=== PATIENT | female | born 1995 | race Caucasian/White ===

== ENCOUNTER 2017-07-24 20:12 | Emergency (ER) | payer BC ==
[2017-07-24] MEDS ORDERED: ACETAMINOPHEN 500 MG TABLET PO ONE (21:08)
--- NOTE | 2017-07-24 21:12 | Emergency Department Record ---
History of Present Illness - General Chief Complaint: Headache Migraine Stated Complaint: DIZZY,VELASQUEZ Time Seen by Provider: 07/24/17 21:08 Source: Patient Mode of Arrival: Ambulatory Limitations: No limitations - History of Present Illness Initial Comments: 22 yo female presents to ED with a CC of headache, congestion, sneezing, and dizziness symptoms. Patient reports she just feels "crummy". Patient started taking theraflu and zyrtec yesterday that did not sufficiently improve her symptoms. Patient denies neck stiffness or pain, denies sore throat, and denies cough symptoms. Patient denies abdominal pain or urinary symptoms. MD Complaint: Other Onset/Timin -: Days(s) Onset Description: At rest Location: Frontal, Left Severity scale (1-10): 6 Quality: Aching Consistency: Constant Improves With: Nothing Worsens With: Movement of head/neck Associated Symptoms: Nausea, Other Other Symptoms: Other Treatments Prior to Arrival: None - Related Data Previous Rx's Medication Instructions Recorded Ibuprofen [Motrin 600Mg] 600 mg PO Q8H #30 tablet 06/16/16 Allergies Allergy/AdvReac Type Severity Reaction Status Date / Time fenofibrate Allergy RASH Verified 05/22/16 11:00 Travel Screening - Travel/Exposure Within Last 30 Days Have you traveled within the last 30 days?: No - Travel Symptoms Symptom Screening: None Review of Systems Constitutional: Reports: Chills, Malaise. Denies: Fever, Night sweats Eyes: Denies: Eye discharge, Eye pain ENT: Reports: Congestion. Denies: Ear pain, Epistaxis Respiratory: Denies: Cough, Dyspnea Cardiovascular: Denies: Chest pain, Dyspnea on exertion Endocrine: Reports: Fatigue. Denies: Heat or cold intolerance Gastrointestinal: Denies: Abdominal pain, Constipation, Vomiting Genitourinary: Denies: Incontinence, Retention Musculoskeletal: Denies: Arthralgia, Back pain, Gout, Joint swelling Skin: Denies: Bruising, Change in color Neurological: Reports: Headache. 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 CORN SHUCKER history: Reports: no CORN SHUCKER history - RESPIRATORY Hx Respiratory Disorders: No Hx Asthma: No Hx Bronchitis: No Hx COPD: No Hx Dyspnea: No Hx Pneumonia: No Hx Pulmonary Embolism: No Hx Sleep Apnea: No Hx Tuberculosis: No Hx of CPAP: No - CARDIOVASCULAR Hx Cardio Disorders: No Hx Cardiac Cath: No Hx Chest Pain: No Hx CHF: No Hx Deep Vein Thrombosis: No Hx Edema: No Hx Heart Attack: No Hx Hypertension: No Hx Hypotension: No Hx Irregular Heartbeat: No Hx Palpitations: No Hx Pacemaker/Defib: No Hx Vascular Disease: No Hx Coronary Artery Disease: No Hx Coronary Artery Bypass Graft: No Hx Coronary Stent: No Hx Percutaneous Transluminal Coronary Angioplasty (PTCA): No - NEURO Hx Neuro Disorders: No - GI Hx GI Disorders: No - Hx Genitourinary Disorders: No - ENDOCRINE Hx Endocrine Disorders: No - MUSCULOSKELETAL Hx Musculoskeletal Disorders: No Comment:: acne - PSYCH Hx Psych Problems: No - HEMATOLOGY/ONCOLOGY Hx Hematology/Oncology Disorders: No Family Medical History Any Significant Family History?: Yes Hx HTN: Father, Mother Physical Exam - General General Appearance: Alert, Oriented x3, Cooperative, Mild distress Limitations: No limitations - Head Head exam: Atraumatic, Normocephalic, Normal inspection Head exam detail: negative: Abrasion, Contusion, Hargrove's sign, General tenderness, Hematoma, Laceration - Eye Eye exam: Normal appearance. negative: Conjunctival injection, Periorbital swelling, Periorbital tenderness, Scleral icterus - ENT Ear exam: negative: Auricular hematoma, Auricular trauma Nasal Exam: negative: Active bleeding, Discharge, Dried blood, Foreign body Mouth exam: negative: Drooling, Laceration, Muffled voice, Tongue elevation - Neck Neck exam: Normal inspection. negative: Meningismus, Tenderness - Respiratory Respiratory exam: Normal lung sounds bilaterally. negative: Rales, Respiratory distress, Rhonchi, Stridor - Cardiovascular Cardiovascular Exam: Regular rate, Normal rhythm, Normal heart sounds - GI/Abdominal GI/Abdominal exam: Soft. negative: Rebound, Rigid, Tenderness - Rectal Rectal exam: Deferred - exam: Deferred - Extremities Extremities exam: Normal inspection. negative: Calf tenderness, Pedal edema, Tenderness - Back Back exam: Denies: CVA tenderness (R), CVA tenderness (L) - Neurological Neurological exam: Alert, Normal gait, Oriented X3 - Psychiatric Psychiatric exam: Normal affect, Normal mood - Skin Skin exam: Normal color. negative: Abrasion Type of lesion: negative: abrasion Course Vital Signs 09/11/17 20:37 Temperature 100.2 F H Pulse Rate [ 105 H Pulse Ox Probe] Respiratory 16 Rate Blood Pressure 114/91 [Left Arm] Pulse Ox 97 - Reevaluation(s) Reevaluation #1: 07/24/17 21:35 Strep/Influenza: Negative. Reevaluation #2: 07/24/17 22:07 Patient was updated on all results, repeat temperature 99.3. Patient denies urinary symptoms, abdominal pain, or neck pain symptoms, no clinical evidence for meningitis on examination. Patient's symptoms appear viral in nature, advised continued symptomatic treatment for her URI symptoms with Tylenol and Motrin. Disposition Disposition: Discharge Clinical Impression: URI (upper respiratory infection) Qualifiers: URI type: unspecified URI Qualified Code(s): J06.9 - Acute upper respiratory infection, unspecified Disposition: Home, Self-Care Condition: (2) Stable Instructions: Upper Respiratory Infection (ED) Additional Instructions: Return to ED if your symptoms worsen or if you have any concerns. Tylenol and and Motrin as directed for fever symptoms. Follow-up with your family doctor in 3-5 days as directed. Forms: Patient Portal Access Time of Disposition: 22:09 Quality - Quality Measures Quality Measures: N/A - Blood Pressure Screening Does Patient Have Any of the Following: No Blood Pressure Classification: Normal BP Reading Systolic Measurement: 117 Diastolic Measurement: 76 Screening for High Blood Pressure: < Normal BP, F/U Not Required > [G8783]
[2017-07-24 21:31] LABS: STREP A SCREEN NEGATIVE (NEGATIVE)
[2017-07-24 21:32] LABS: INFLUENZA A NEGATIVE (NEGATIVE); INFLUENZA B NEGATIVE (NEGATIVE)
== END 2017-07-24 22:15 | disposition home or self-care (01) ==
LOC: ER 20:12
DX: J06.9 Acute upper respiratory infection, unspecified (principal); R51 Headache; R11.0 Nausea; R42 Dizziness and giddiness
CPT/HCPCS: 87400; 87880; 99282

== ENCOUNTER 2018-10-13 19:21 | Emergency (ER) | payer BC ==
[2018-10-13] MEDS ORDERED: IBUPROFEN 600 MG TABLET PO ONE (19:42)
[2018-10-13] MEDS ORDERED: TOPICAL LIDOCAINE W/ EPI 5 ML TOP ONE (19:42)
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
[2018-10-13] MEDS ORDERED: CEPHALEXIN 500 MG CAPSULE PO STA (20:26)
[2018-10-13] MEDS ORDERED: HYDROCODONE/APAP 5/325MG TABLET PO ONE (20:26)
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
== END 2018-10-13 20:46 | disposition home or self-care (01) ==
LOC: ER 19:21
DX: S61.412A Laceration without foreign body of left hand, initial encounter (principal); R42 Dizziness and giddiness; W26.0XXA Contact with knife, initial encounter; Y93.G1 Activity, food preparation and clean up; Y92.000 Kitchen of unspecified non-institutional (private) residence as the place of occurrence of the external cause
CPT/HCPCS: 12001; 99283; 99284

== ENCOUNTER 2019-04-28 19:43 | Emergency (ER) | payer BC ==
[2019-04-28] MEDS ORDERED: AMOXICILLIN/POTASSIUM CLAV 875MG/125MG TABLET PO ONE (20:22)
--- NOTE | 2019-04-28 21:00 | Emergency Department Record ---
History of Present Illness - General Chief Complaint: Animal Bite Stated Complaint: CAT BITE Time Seen by Provider: 04/28/19 20:15 Source: Patient Mode of Arrival: Ambulatory Limitations: No limitations - History of Present Illness Initial Comments: pt states her cat bit her finger when she startled it 4 hrs ago on the r middle finger tip. now it has swelling and erythema. cat has not had its rabies but is kept in the house at all times. Onset/Timin -: Hour(s) Animal: Cat Description: Household pet, Appeared well Mechanism: Bite Context: Other Associated Symptoms: None - Related Data Patient Tetanus UTD (within 5 yrs): Yes Home Medications Medication Instructions Recorded Confirmed Last Taken Guaifenesin [Mucinex] 600 mg PO DAILY 04/28/19 04/28/19 Unknown Previous Rx's Medication Instructions Recorded Amoxicillin/Potassium Clav 1 tab PO BID #20 tab 04/28/19 [Augmentin 875-125 Tablet] Allergies Allergy/AdvReac Type Severity Reaction Status Date / Time fenofibrate Allergy RASH Verified 05/22/16 11:00 Travel Screening - Travel/Exposure Within Last 30 Days Have you traveled within the last 30 days?: No Past Medical History - SOCIAL HISTORY Smoking Status: Never smoker Alcohol Use: None Drug Use: None - 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 SETUP TECHNICIAN history: Reports: no SETUP TECHNICIAN history - RESPIRATORY Hx Respiratory Disorders: No Hx Asthma: No Hx Bronchitis: No Hx COPD: No Hx Dyspnea: No Hx Pneumonia: No Hx Pulmonary Embolism: No Hx Sleep Apnea: No Hx Tuberculosis: No Hx of CPAP: No - CARDIOVASCULAR Hx Cardio Disorders: No Hx Cardiac Cath: No Hx Chest Pain: No Hx CHF: No Hx Deep Vein Thrombosis: No Hx Edema: No Hx Heart Attack: No Hx Hypertension: No Hx Hypotension: No Hx Irregular Heartbeat: No Hx Palpitations: No Hx Pacemaker/Defib: No Hx Vascular Disease: No Hx Coronary Artery Disease: No Hx Coronary Artery Bypass Graft: No Hx Coronary Stent: No Hx Percutaneous Transluminal Coronary Angioplasty (PTCA): No - NEURO Hx Neuro Disorders: No - GI Hx GI Disorders: No - Hx Genitourinary Disorders: No - ENDOCRINE Hx Endocrine Disorders: No - MUSCULOSKELETAL Hx Musculoskeletal Disorders: No Comment:: acne - PSYCH Hx Psych Problems: No - HEMATOLOGY/ONCOLOGY Hx Hematology/Oncology Disorders: No Family Medical History Any Significant Family History?: Yes Hx HTN: Father, Mother Course Vital Signs 06/16/19 19:54 Temperature 98.8 F Pulse Rate 108 H Respiratory 20 Rate Blood Pressure 117/91 Pulse Ox 99 - Reevaluation(s) Reevaluation #1: 04/28/19 20:56 pt does not want rabies as she states cat never goes out. anmal control has been notified Disposition Disposition: Discharge Clinical Impression: Cat bite involving extremity Disposition: Home, Self-Care Condition: (1) Good Instructions: Animal Bite (ED) Additional Instructions: recheck in 1-2 days. follow up with family doctor and with animal control. return sooner if worse. soak finger in warm water 4 times a day. Prescriptions: Amoxicillin/Potassium Clav [Augmentin 875-125 Tablet] 1 tab PO BID #20 tab Quality - Quality Measures Quality Measures: N/A - Blood Pressure Screening Does Patient Have Any of the Following: No Blood Pressure Classification: Hypertensive Reading Systolic Measurement: 117 Diastolic Measurement: 91 Screening for High Blood Pressure: < Pre-Hypertensive BP, F/U Documented > [G8950] Pre-Hypertensive Follow-up Interventions: Follow-up with rescreen every year.
--- NOTE | 2019-05-01 14:21 | RADIOLOGY REPORT ---
EXAM: RIGHT THIRD FINGER HISTORY: CAT BITE TO RIGHT THIRD FINGER DISTALLY. PAIN AND SWELLING, POSSIBLE FOREIGN BODY. TECHNIQUE: Three views of the right third finger were obtained. Comparison: Right hand series of 01/12/13. No prior right third finger series. Encounter: Initial. FINDINGS: Mild soft tissue swelling distally involving the third finger. No definite fracture seen. No dislocation evident. No definite opaque foreign body is seen, although some foreign bodies will be radiographically indistinguishable from the adjacent soft tissues. IMPRESSION: MILD SOFT TISSUE SWELLING DISTALLY. THE RIGHT THIRD FINGER APPEARS OTHERWISE NEGATIVE. J[facility]BER: [id number] [facility]
== END 2019-04-28 21:28 | disposition home or self-care (01) ==
LOC: ER 19:43
DX: S61.252A Open bite of right middle finger without damage to nail, initial encounter (principal); R05 Cough; W55.01XA Bitten by cat, initial encounter; Y92.009 Unspecified place in unspecified non-institutional (private) residence as the place of occurrence of the external cause
CPT/HCPCS: 73140; 99283

== ENCOUNTER 2019-04-29 20:55 | Emergency (ER) | payer BC ==
--- NOTE | 2019-04-29 21:07 | Emergency Department Record ---
History of Present Illness - General Chief Complaint: Animal Bite Stated Complaint: CAT BITE,STRAIN MUSCLE IN CHEST Time Seen by Provider: 04/29/19 21:01 Source: Patient Mode of Arrival: Ambulatory Limitations: No limitations - History of Present Illness Initial Comments: 24 yo female presents to ED for evaluation following a cat bite to the distal aspect of the right middle digit. Patient was seen last night 4-hours after her bite, started on Augmentin orally. Patient was told to return to the ED if her symptoms failed to improve in 24 hours. Patient reports her redness and swelling are about the same, denies fevers, chills, or extending erythema beyond the bite last PM. Patient denies health problems at her baseline. MD Complaint: Animal bite Onset/Timin -: Hour(s) Right: Hand Animal: Cat Description: Household pet Mechanism: Bite Pain Description: Dull Associated Symptoms: Erythema - Related Data Patient Tetanus UTD (within 5 yrs): Yes Previous Rx's Medication Instructions Recorded Amoxicillin/Potassium Clav 1 tab PO BID #20 tab 04/28/19 [Augmentin 875-125 Tablet] Allergies Allergy/AdvReac Type Severity Reaction Status Date / Time fenofibrate Allergy RASH Verified 05/22/16 11:00 Review of Systems Constitutional: Denies: Chills, Fever, Malaise, Night sweats Eyes: Denies: Eye discharge, Eye pain ENT: Denies: Congestion, Ear pain, Epistaxis Respiratory: Denies: Cough, Dyspnea Cardiovascular: Denies: Chest pain, Dyspnea on exertion Endocrine: Denies: Fatigue, Heat or cold intolerance Gastrointestinal: Denies: Abdominal pain, Nausea, Vomiting Genitourinary: Denies: Incontinence, Retention Musculoskeletal: Denies: Arthralgia, Back pain Skin: Reports: Other (Bite to the right middle finger). 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: Reports: no SOAKING ROOM OPERATOR history - RESPIRATORY Hx Respiratory Disorders: No Hx Asthma: No Hx Bronchitis: No Hx COPD: No Hx Dyspnea: No Hx Pneumonia: No Hx Pulmonary Embolism: No Hx Sleep Apnea: No Hx Tuberculosis: No Hx of CPAP: No - CARDIOVASCULAR Hx Cardio Disorders: No Hx Cardiac Cath: No Hx Chest Pain: No Hx CHF: No Hx Deep Vein Thrombosis: No Hx Edema: No Hx Heart Attack: No Hx Hypertension: No Hx Hypotension: No Hx Irregular Heartbeat: No Hx Palpitations: No Hx Pacemaker/Defib: No Hx Vascular Disease: No Hx Coronary Artery Disease: No Hx Coronary Artery Bypass Graft: No Hx Coronary Stent: No Hx Percutaneous Transluminal Coronary Angioplasty (PTCA): No - NEURO Hx Neuro Disorders: No - GI Hx GI Disorders: No - Hx Genitourinary Disorders: No - ENDOCRINE Hx Endocrine Disorders: No - MUSCULOSKELETAL Hx Musculoskeletal Disorders: No Comment:: acne - PSYCH Hx Psych Problems: No - HEMATOLOGY/ONCOLOGY Hx Hematology/Oncology Disorders: No Family Medical History Any Significant Family History?: Yes Hx HTN: Father, Mother Physical Exam - General General Appearance: Alert, Oriented x3, Cooperative, No acute distress Limitations: No limitations - Head Head exam: Atraumatic, Normocephalic, Normal inspection Head exam detail: negative: Abrasion, Contusion, Hargrove's sign, General tenderness, Hematoma, Laceration - Eye Eye exam: Normal appearance. negative: Conjunctival injection, Periorbital swelling, Periorbital tenderness, Scleral icterus - ENT Ear exam: negative: Auricular hematoma, Auricular trauma Nasal Exam: negative: Active bleeding, Discharge, Dried blood, Foreign body Mouth exam: negative: Drooling, Laceration, Muffled voice, Tongue elevation - Neck Neck exam: Normal inspection. negative: Meningismus, Tenderness - Respiratory Respiratory exam: Normal lung sounds bilaterally. negative: Rales, Respiratory distress, Rhonchi, Stridor - Cardiovascular Cardiovascular Exam: Regular rate, Normal rhythm, Normal heart sounds - GI/Abdominal GI/Abdominal exam: Soft. negative: Rebound, Rigid, Tenderness - Rectal Rectal exam: Deferred - exam: Deferred - Extremities Extremities exam: Tenderness, Other (Mild STS and erythema present to the tuft of the right middle finger, no felon present, erythema does not extend beyond the DIP. No Knavel's signs are present.). negative: Calf tenderness, Pedal edema - Back Back exam: Denies: CVA tenderness (R), CVA tenderness (L) - Neurological Neurological exam: Alert, Normal gait, Oriented X3 - Psychiatric Psychiatric exam: Normal affect, Normal mood - Skin Skin exam: Normal color. negative: Abrasion Type of lesion: negative: abrasion Course - Reevaluation(s) Reevaluation #1: 04/29/19 21:12 Patient was seen and examined, patient is concerned about failure to improve in 24 hours. Patient was counseled that symptoms will show improvement for 48 hour at the earliest, however to return to ED for extending erythema to the PIP or beyond. Patient appears stable for discharge with continued outpatient treatment as prescribed. Disposition Disposition: Discharge Clinical Impression: Cat bite involving extremity Disposition: Home, Self-Care Condition: (2) Stable Instructions: Animal Bite (ED) Additional Instructions: Return to ED if your symptoms worsen or if you have any concerns. Continue Augmentin as directed. Follow-up with your family doctor in 3-5 days as directed. Forms: Patient Portal Access Time of Disposition: 21:06 Quality - Quality Measures Quality Measures: N/A - Blood Pressure Screening Does Patient Have Any of the Following: No Blood Pressure Classification: Pre-Hypertensive BP Reading Systolic Measurement: 129 Diastolic Measurement: 83 Screening for High Blood Pressure: < Pre-Hypertensive BP, F/U Documented > [G8950] Pre-Hypertensive Follow-up Interventions: Referral to alternative/primary care provider.
== END 2019-04-29 21:09 | disposition home or self-care (01) ==
LOC: ER 20:55
DX: S61.252A Open bite of right middle finger without damage to nail, initial encounter (principal); R05 Cough; W55.01XA Bitten by cat, initial encounter; Y92.009 Unspecified place in unspecified non-institutional (private) residence as the place of occurrence of the external cause
CPT/HCPCS: 99282